=== PATIENT | male | born 1985 | race Caucasian/White ===

== ENCOUNTER 2018-07-02 23:01 | Emergency (ER) | payer MEDICAID ==
[~2018-07-02] VITALS: Ht 177.8 cm; Wt 71.2 kg
[2018-07-02 23:12] VITALS: BP 132/80
--- NOTE | 2018-07-02 23:42 | NUR ---
PT IS 33 YO MALE C/O DOG BITE TO RT HAND WILL AT WORK FOR [employer], NO BLEEDING, UNK IF THE DOG'S SHOT ARE UP TO DATE, SMALL PUNCTURE WOUND, LAST TETANUS SHOT WAS 2008, WAITING TO BE EVALUATED
[2018-07-03] MEDS ORDERED: rabies immune globulin/PF 150 unit/ml inj IM ONE (00:40)
[2018-07-03] MEDS ORDERED: rabies vaccine (PCEC)/PF 2.5 unit kit IM ONE (00:40)
[2018-07-03] MEDS ORDERED: TETanus/Pertussis (Acell)/Diphther VAC/PF (Tdap-Adult) 0.5ml syringe IM ONE (00:40)
[2018-07-03] MEDS ORDERED: AMOX-580 PO (01:11)
== END 2018-07-03 01:38 | disposition home or self-care (01) ==
LOC: ER 23:01
DX: S61.431A Puncture wound without foreign body of right hand, initial encounter (principal); Z20.3 Contact with and (suspected) exposure to rabies; W54.0XXA Bitten by dog, initial encounter; Y93.89 Activity, other specified; Y92.89 Other specified places as the place of occurrence of the external cause; Y99.8 Other external cause status
CPT/HCPCS: 90375; 90471; 90472; 90675; 90715; 96372; 99283

== ENCOUNTER 2018-07-06 20:50 | Emergency (ER) | payer MEDICAID ==
[~2018-07-06] VITALS: Ht 177.8 cm; Wt 83.2 kg
[~2018-07-06 20:50] MED LIST: AMOX-580 PO
[2018-07-06] MEDS ORDERED: rabies vaccine (PCEC)/PF 2.5 unit kit IMVAC ONE (22:10)
[2018-07-06 22:27] VITALS: BP 122/75
== END 2018-07-06 22:29 | disposition home or self-care (01) ==
LOC: ER 20:50
DX: S61.431D Puncture wound without foreign body of right hand, subsequent encounter (principal); Z90.49 Acquired absence of other specified parts of digestive tract; X58.XXXD Exposure to other specified factors, subsequent encounter
CPT/HCPCS: 90471; 90675; 99283

== ENCOUNTER 2018-08-15 18:58 | Emergency (ER) | payer MEDICAID ==
[~2018-08-15] VITALS: Ht 177.8 cm; Wt 178.1 kg
[2018-08-15 19:00] VITALS: BP 125/72
[2018-08-15] MEDS ORDERED: LIDOcaine 1% w/epiNEPHrine 1:200,000 30ml vial IM ONE (20:25)
--- NOTE | 2018-08-15 21:00 | NUR ---
PA at bedside performing suture repair
[2018-08-15] MEDS ORDERED: HYDR-3965 PO (21:21)
[2018-08-15] MEDS ORDERED: CEPH-572 PO (21:21)
== END 2018-08-15 21:29 | disposition home or self-care (01) ==
LOC: ER 18:58
DX: S51.021A Laceration with foreign body of right elbow, initial encounter (principal); S51.041A Puncture wound with foreign body of right elbow, initial encounter; Z79.2 Long term (current) use of antibiotics; Z79.899 Other long term (current) drug therapy; Z90.49 Acquired absence of other specified parts of digestive tract; Z98.890 Other specified postprocedural states; W25.XXXA Contact with sharp glass, initial encounter; Y93.89 Activity, other specified; Y92.810 Car as the place of occurrence of the external cause; Y99.8 Other external cause status
CPT/HCPCS: 12031; 99284; J3490

== ENCOUNTER 2022-05-17 02:00 | Emergency (ER) | payer MEDICAID ==
[~2022-05-17] VITALS: Ht 177.8 cm; Wt 84.1 kg
[2022-05-17 02:04] VITALS: BP 121/73
[2022-05-17] MEDS ORDERED: ketorolac trometh inj. 60 MG/2 ML VIAL IM ONE ×2 (02:25)
[2022-05-17] MEDS ORDERED: IBUP-1984 PO (02:29)
[2022-05-17] MEDS ORDERED: LIDO1ADH67 TD (02:29)
[2022-05-17] MEDS ORDERED: LIDOcaine 5% patch TP ONE (02:35)
[2022-05-17] MEDS ORDERED: LIDOcaine 5% patch TP SCH (08:00)
== END 2022-05-17 03:09 | disposition home or self-care (01) ==
LOC: ER 02:01
DX: M54.50 Low back pain, unspecified (principal); Z98.890 Other specified postprocedural states
CPT/HCPCS: 96372; 99283; J1885